=== PATIENT | female | born 1950 | race Caucasian/White ===

== ENCOUNTER 2022-03-13 06:39 | Day surgery (SDC) | payer MEDICARE, BC ==
[2022-03-06 15:18] LABS: BASOPHILS % (AUTO) 0.8 % (0-1); EOSINOPHILS % (AUTO) 0.9 % (0-6); LYMPHOCYTES # (AUTO) 1.4 X10'3 (1.1-4.8); MEAN CORPUSCULAR HEMOGLOBIN 33.7 PG (27.0-31.0); MEAN CORPUSCULAR HGB CONC 34.1 g/dL (33.0-36.5); MEAN PLATELET VOLUME 9.3 FL (7.4-10.4); MONOCYTES # (AUTO) 0.3 X10'3 (0-0.9); MONOCYTES % (AUTO) 8.5 % (2-12); NEUTROPHILS # (AUTO) 2.1 X10'3 (1.8-7.7); NEUTROPHILS % (AUTO) 52.8 % (42-75); PRE OP HEMATOCRIT 42.9 % (35.0-45.0); PRE OP HEMOGLOBIN 14.6 g/dL (12.0-16.0); PRE OP PLATELET COUNT 104 X10'3 (140-440); RED BLOOD COUNT 4.33 X10'6 (4.20-5.60); RED CELL DISTRIBUTION WIDTH 13.6 % (11.5-14.5)
[2022-03-06 15:30] LABS: CLARITY,URINE CLEAR (Clear); COLOR,URINE YELLOW (Yellow); GLUCOSE, URINE NEGATIVE (Neg); KETONES,URINE TRACE mg/dl (Neg); LEUKOCYTE ESTERASE ,URINE NEGATIVE (Neg); NITRITES, URINE NEGATIVE (Neg); OCCULT BLOOD,URINE NEGATIVE (Neg); PROTEIN,URINE NEGATIVE (Neg); UROBILINOGEN,URINE 0.2 E.U/dL (0.2-1.0)
[2022-03-06 15:32] LABS: UA COLLECTION TYPE VOIDED
[2022-03-06 15:43] LABS: ALBUMIN 3.7 G/DL (3.4-5.0); ALBUMIN/GLOBULIN RATIO 1.4 (1.1-1.5); ALKALINE PHOSPHATASE 84 IU/L (46-116); BLOOD UREA NITROGEN 13 MG/DL (7-18); BUN/CREATININE RATIO 16.7 (6.6-38.0); CALCIUM 9.1 MG/DL (8.5-10.1); CHLORIDE 105 MMOL/L (99-107); CREATININE 0.78 MG/DL (0.40-0.90); PRE OP ALT 30 U/L (30-65); PRE OP ANION GAP 4 (8-16); PRE OP AST 25 U/L (10-37); PRE OP BILIRUB, TOTAL 0.5 MG/DL (0.0-1.0); PRE OP GLUCOSE 86 MG/DL (70-104); PRE OP POTASSIUM 3.6 MMOL/L (3.4-5.1); PRE OP SODIUM 141 MMOL/L (135-145); TOTAL CARBON DIOXIDE 32.1 MMOL/L (24-32); TOTAL PROTEIN 6.4 G/DL (6.4-8.2); eGFR 73 ML/MIN
[~2022-03-13] VITALS: Ht 157.5 cm; Wt 62.2 kg
[2022-03-13] VITALS (15 sets, daily range): BP systolic 132–196; BP diastolic 40–136
[~2022-03-13 06:39] MED LIST: CARV12.545 PO; DOCUMENT DATE & TIME OF BETA-BLOCKER PO ONE; HYDR12.55 PO; LEVO75TA7 PO; LOSA25TA41 PO; ceFAZolin inj. 2,000 MG in dextrose 5%-water 100 ML IV ONE; famotidine 20mg tablet PO ONE; ringers solution, lacted 1,000 ML IV SCH
[2022-03-13] MEDS ORDERED: BUPIVAcaine 0.5% inj/PF 30 ML ONE (10:41)
[2022-03-13] MEDS ORDERED: sevoflurane 250ml liquid IH ONE (11:04)
[2022-03-13] MEDS ORDERED: BUPIVAcaine/PF 5 mg/ml 10ml ONE (11:09)
[2022-03-13] MEDS ORDERED: BUPIVACAINE liposomal/PF 13.3 MG/ML vial IM ONE (11:09)
[2022-03-13] MEDS ORDERED: midazolam 1 mg/ML 2ml injection ONE (11:11)
[2022-03-13] MEDS ORDERED: fentaNYL /PF 50mcg/ml 5ml ampule ONE (11:11)
[2022-03-13] MEDS ORDERED: dexamethasone sod phosphate 4mg/ml inj. ONE (12:12)
[2022-03-13] MEDS ORDERED: LIDOcaine 2% (20mg/ml) 5ml vial ONE (12:12)
[2022-03-13] MEDS ORDERED: ondansetron/PF 4mg/2ml inj ONE (12:12)
[2022-03-13] MEDS ORDERED: rocuronium 10mg/ml inj IV ONE (12:12)
[2022-03-13] MEDS ORDERED: propofol inj 20 ML IV ONE (12:12)
[2022-03-13] MEDS ORDERED: neostigmine methylsulfate 1 MG/ML 10ml vial ONE (12:13)
[2022-03-13] MEDS ORDERED: glycopyrrolate 0.2mg/ml inj ONE (12:13)
--- NOTE | 2022-03-13 12:19 | NUR ---
Received from OR via [facility], accompanied by Anesthesiologist DR. WEIR AND OR NURSE. PT ARRIVED DROWSY ON 10L OF VIA MASK. MULTIPLE ABD INCISIONS WITH DERMABOND NOTED C/D/I. 20G IV TO LEFT ARM. VSS. WILL CONTINUE TO MONITOR. Addendum: 03/13/22 at 1302 by Mallorie Palumbo RN Amended: Links added.
[2022-03-13] MEDS ORDERED: morphine 2 MG/ML inj. syringe IV PRN (12:35)
[2022-03-13] MEDS ORDERED: ondansetron/PF 4mg/2ml inj IV PRN (12:35)
[2022-03-13] MEDS ORDERED: meperidine/PF 25mg/ml syringe IV PRN ×3 (12:35)
[2022-03-13] MEDS ORDERED: labetalol 20mg/4ml (5mg/ml) syringe IV PRN (12:35)
[2022-03-13] MEDS ORDERED: acetaminophen 1,000mg/100ml IV 100 ML IV PRN (12:35)
[2022-03-13] MEDS ORDERED: proCHLORperazine 10 MG/2 ml inj IV PRN (12:35)
[2022-03-13] MEDS ORDERED: ketorolac trometh. 30mg/ml inj. IV ONE (12:35)
[2022-03-13] MEDS ORDERED: ringers solution, lacted 1,000 ML IV SCH (12:35)
[2022-03-13] MEDS ORDERED: hydrALAZINE 20mg/ml inj. IV PRN (12:35)
[2022-03-13] MEDS: morphine 4 MG/ML inj SYRINge IV PRN ×2 (12:41→13:04)
--- NOTE | 2022-03-13 14:29 | NUR ---
ALL DISCHARGE CRITERIA HAS BEEN MET. NO S/S OF BLEEDING OR SWELLING ON ABD. VSS, PAIN AT A TOLERABLE LEVEL, ABLE TO SAFELY AMBULATE AND TRANSFER SELF. IV TAKEN OUT WITHOUT ANY COMPLICATIONS. ALL DISCHARGE INSTRUCTIONS COVERED WITH PATIENT AND ALL QUESTIONS ANSWERED. PATIENT TAKEN OUT VIA WHEELCHAIR TO PERSONAL VEHICLE WHERE FAMILY/FRIEND DROVE PATIENT HOME. Addendum: 03/13/22 at 1457 by Mallorie Palumbo RN Amended: Links added.
== END 2022-03-13 14:29 | disposition home or self-care (01) ==
LOC: PAS 06:39
PROVIDERS: ATTEND Surgery
DX: K43.6 Other and unspecified ventral hernia with obstruction, without gangrene (principal); K42.0 Umbilical hernia with obstruction, without gangrene; G89.18 Other acute postprocedural pain; E03.9 Hypothyroidism, unspecified; M10.9 Gout, unspecified; Z79.899 Other long term (current) drug therapy; Z88.2 Allergy status to sulfonamides; Z88.6 Allergy status to analgesic agent; Z98.890 Other specified postprocedural states
CPT/HCPCS: 36415; 49653; 64488; 80053; 81003; 82948; 85025; 93005; C1781; C9290; J0131; J0690; J1100; J1885; J2250; J2270; J2405; J2704; J2710; J3010; J3490; J7030; J7060; J7120; S0020; Z7506; Z7508; Z7512; A4618; A7000